=== PATIENT | female | born 1970 | race Caucasian/White ===

== ENCOUNTER → 2020-03-30 | Outpatient (CLI) | payer BC ==
[2016-03-04 22:45] VITALS: BP 133/85
[~2020-03-30] MED LIST: ACET500T68 PO; AMLO5TAB10 PO; CELE200C PO; GABA300C18 PO; LOSA25TA12 PO
== END | disposition home or self-care (01) ==
LOC: LAB 13:13
PROVIDERS: ATTEND Surgery
DX: Z01.818 Encounter for other preprocedural examination (principal); Z11.59 Encounter for screening for other viral diseases; K43.2 Incisional hernia without obstruction or gangrene
CPT/HCPCS: U0003-CS

== ENCOUNTER 2020-04-02 08:01 | Day surgery (SDC) | payer BC ==
[~2020-04-02] VITALS: Ht 162.6 cm; Wt 71.0 kg
[~2020-04-02 08:01] MED LIST changes: -ACET500T68 PO; +ACETAMINOPHEN 500 MG TABLET PO ONE; -AMLO5TAB10 PO; +BUPIVACAINE-EPI 0.25%-1:200000 MPF 30 ML VIAL. ONE; -CELE200C PO; +CLINDAMYCIN 900MG PREMIX 50 ML IV ONE; -GABA300C18 PO; +IV RINGERS,LACTATED 1000ML 1,000 ML IV SCH; +LIDOCAINE 1% PF 2 ML VIAL. ID PRN; -LOSA25TA12 PO; +MIDAZOLAM HCL/PF 2 MG/2 ML VIAL. ONE; +MINERAL OIL for SURGERY 10 ML VIAL. MC ONE; +ONDANSETRON PF 4 MG/2 ML VIAL. IV PRN; +PROCHLORPERAZINE 10 MG/2 ML VIAL. IV PRN
[2020-04-02] MEDS ORDERED: AMLO5TAB10 PO (08:03)
[2020-04-02] MEDS ORDERED: LOSA25TA12 PO (08:03)
[2020-04-02] MEDS ORDERED: ROCURONIUM 50 MG/5 ML VIAL. ONE (08:08)
[2020-04-02] MEDS ORDERED: fentaNYL PF VIAL 100 MCG/2 ML VIAL ONE (08:08)
[2020-04-02] MEDS ORDERED: SEVOFLURANE 61 TO 120 MINUTES. IH ONE (08:09)
[2020-04-02] MEDS ORDERED: LIDOCAINE 2% PF 5 ML VIAL. ONE (08:10)
[2020-04-02] MEDS ORDERED: ONDANSETRON PF 4 MG/2 ML VIAL. ONE (08:10)
[2020-04-02] MEDS ORDERED: DEXAMETHASONE SOD PHOS 20 MG/5 ML VIAL. ONE (08:10)
[2020-04-02] MEDS ORDERED: PROPOFOL 10 MG/ML (20ML) VIAL. IV ONE ×2 (08:10→10:38)
[2020-04-02] MEDS ORDERED: KETOROLAC 30 MG/ML VIAL. ONE (09:52)
[2020-04-02] MEDS ORDERED: GLYCOPYRROLATE 1 MG/5 ML VIAL. ONE (09:54)
[2020-04-02] MEDS ORDERED: NEOSTIGMINE METHYLSULFATE 5 MG/5 ML SYRINGE. ONE (09:54)
[2020-04-02] MEDS ORDERED: ePHEDrine PF IN SALINE 50 MG/10 ML SYRINGE. IV ONE (10:03)
--- NOTE | 2020-04-02 10:48 | PDOC4 ---
Operative Note Operative Note Date: April 02, 2020 at 1044 Preoperative diagnosis: Ventral hernia Postoperative diagnosis: Incarcerated ventral hernia Procedure: Robotic assisted laparoscopic ventral hernia repair with mesh Surgeon: Fam Specimen: None Dictation: Patient is a 49-year-old female is complained of a painful bulge at her umbilicus where she had previously had a diagnostic laparoscopy incision. Procedure of robotic assisted laparoscopic ventral hernia repair with mesh was explained to the patient detail all risk benefits were also discussed including bleeding infection injury to intra-abdominal contents possibly necessitating further open operations alternatives to this procedure also discussed with the patient who seemed to understand and gave both verbal and written consent to have the procedure performed. Patient was taken to the operating room placed in the supine position general anesthesia was initiated once patient was sleeping intubated her abdomen was prepped and draped usual sterile fashion using ChloraPrep. An area just the left upper quadrant was injected quarter percent Marcaine with epinephrine incision was made 11 blade scalpel and a 5 mm Visiport was placed under direct visualization of the abdomen creating pneumoperitoneum once this complete 5 mm camera was placed and the abdomen was inspected was noted that the hernia was incarcerated omental fat. A 8 mm da Sona port was placed in the left midabdomen and 8 mm da Sona port was placed in the left lower abdomen and the 5 mm Visiport was changed out 8 mm da Sona port. The robot was brought in and docked all port sites surgeon with robotic console using a grasper and Endo Bg scissors the incarcerated omentum was reduced from the hernia defect and the preperitoneal fat was incised and the hernia sac was reduced. The hernia defect was then closed with a running 2 OV lock nonabsorbable suture. Bard ventral light ST mesh was then placed over the hernia defect this was sewn into place with a running 2 OV lock absorbable suture. The preperitoneal fat was then closed over the mesh. Sutures removed along with the needles and the pneumoperitoneum was reduced the da Sona robot was undocked all ports were removed skin incision all port sites closed with 4 subcuticular Monocryl Mastisol Steri-Strips and island dressings were applied. Patient was awakened and extubated in the operating room taken to recovery in stable condition all sponge instrument needle counts listed as correct estimated blood loss 5 mL LUIS ENAMORADO MD Apr 02, 2020 10:48
--- NOTE | 2020-04-02 10:50 | DISCH ---
DISCHARGE INSTRUCTIONS Condition on Discharge Condition on Discharge: Stable Activity After Discharge Activity Instructions for Disc: Avoid exertion Other activity instructions: No lifting more than 20 pounds for 2 weeks Diet after Discharge Diet after Discharge: Regular Wound Incision Care Other wound/incision instructi: May shower in 24 hours Contacting the [facility] after DC Call your doctor for: If your condition worsens Follow-Up Follow up with: Dr. Enamorado in 2 weeks LUIS ENAMORADO MD Apr 02, 2020 10:50
[2020-04-02] MEDS ORDERED: HYDROmorphone 2 MG/ML VIAL ONE (11:01)
[2020-04-02] MEDS: HYDROmorphone 2 MG/ML VIAL IVP PRN ×4 (11:04→11:38)
[2020-04-02] MEDS ORDERED: GABA300C18 PO (11:14)
[2020-04-02] MEDS ORDERED: CELE200C PO (11:15)
[2020-04-02] MEDS ORDERED: ACET500T68 PO (11:15)
[2020-04-02] MEDS ORDERED: ACETAMINOPHEN 500 MG TABLET PO PRN (11:15)
[2020-04-02] MEDS ORDERED: GABAPENTIN 300 MG CAPSULE. PO ONE (11:17)
[2020-04-02] MEDS ORDERED: CELECOXIB 100 MG CAPSULE. ONE (11:17)
[2020-04-02] MEDS ORDERED: ACETAMINOPHEN 325 MG TABLET. PO ONE (11:18)
[2020-04-02] MEDS ORDERED: ACETAMINOPHEN 500 MG TABLET PO ONE (11:30)
[2020-04-02 11:45] VITALS: BP 100/62
[2020-04-02] MEDS ORDERED: GABAPENTIN 300 MG CAPSULE. PO SCH (14:00)
[2020-04-02] MEDS ORDERED: CELECOXIB 100 MG CAPSULE. PO SCH (21:00)
== END 2020-04-02 12:15 | disposition home or self-care (01) ==
LOC: SURG 08:01
PROVIDERS: ATTEND Surgery
DX: K43.6 Other and unspecified ventral hernia with obstruction, without gangrene (principal); Z88.0 Allergy status to penicillin; Z88.5 Allergy status to narcotic agent; Z88.8 Allergy status to other drugs, medicaments and biological substances; Z79.899 Other long term (current) drug therapy
CPT/HCPCS: 49653; A7015; C1781; J0780; J1100; J1170; J1885; J2250; J2405; J2704; J2710; J3010; J3490; J7120; S2900